=== PATIENT | male | born 1965 | race Two or more races ===

== ENCOUNTER 2024-05-12 14:34 | Emergency (ER) | payer OTHER ==
[2024-05-12 15:15] VITALS: BP 134/78; PULSE 73; RESP 18; TEMP 97.6; BMI 25.8
[2024-05-12 15:54] LABS: URINE APPEARANCE CLEAR; URINE BILIRUBIN NEGATIVE (NEGATIVE); URINE COLOR YELLOW; URINE GLUCOSE (UA) NEGATIVE (NEGATIVE); URINE KETONE NEGATIVE (NEGATIVE); URINE LEUK ESTERASE NEGATIVE (NEGATIVE); URINE NITRITE NEGATIVE (NEGATIVE); URINE PROTEIN NEGATIVE (NEGATIVE); URINE UROBILINOGEN 0.2 mg/dL (0.2-1.0)
[2024-05-12] MEDS ORDERED: LIDOCAINE 4% PATCH TP ONE (16:14)
[2024-05-12] MEDS ORDERED: ACETAMINOPHEN 500 MG TABLET (FP) ONE (16:16)
[2024-05-12] MEDS: ACETAMINOPHEN 500 MG TABLET (FP) PO ONE (16:21)
[2024-05-12] MEDS: LIDOCAINE 4% PATCH TP ONE (16:22)
[2024-05-12] MEDS ORDERED: METHOCARBAMOL 500 MG TABLET ONE (16:51)
[2024-05-12] MEDS: METHOCARBAMOL 500 MG TABLET PO ONE (16:54)
[2024-05-12] MEDS ORDERED: oxyCODONE HCL 5 MG TABLET ONE (19:14)
[2024-05-12] MEDS ORDERED: KETOROLAC TROMETHAMINE 30 MG/1 ML VIAL ONE (19:14)
[2024-05-12] MEDS: oxyCODONE HCL 5 MG TABLET PO ONE (19:25)
[2024-05-12] MEDS: KETOROLAC TROMETHAMINE 30 MG/1 ML VIAL IM ONE (19:25)
[2024-05-12] MEDS ORDERED: LIDOCAINE PATCH REMOVAL MC SCH (22:00)
== END 2024-05-12 19:51 | disposition home or self-care (01) ==
LOC: JER 14:34
PROC: 3E0133Z Introduction of Anti-inflammatory into Subcutaneous Tissue, Percutaneous Approach (ICD-10-PCS; principal; 2024-05-12)
DX: M54.50 Low back pain, unspecified (principal); R11.0 Nausea
CPT/HCPCS: 81003; 99284-25